=== PATIENT | female | born 1995 | race Hispanic/Latino ===

== ENCOUNTER 2019-09-14 17:06 | Outpatient (CLI) | payer MEDICAID, SELFPAY ==
--- NOTE | ~2019-09-14 | US_ITS ---
EXAMINATION: US OB <= 14 weeks fetus EXAM DATE: 09/14/2019 17:44 INDICATION: Spotting, . First trimester. TECHNIQUE: Pelvic obstetrical transabdominal sonogram was performed by a technologist. There are mu ltiple grayscale and Doppler images available for interpretation. There are no earlier studies of th is gestation for comparison. FINDINGS: Uterus measures 14.1 x 7.8 x 9.3 cm. There is intrauterine gestation sac. pole with heart rate confirmed at 157 beats per minute. The 5.3 cm crown-rump length corresponds to estimated gestational age by ultrasound of 12 weeks 0 days. There is subchorionic heterogeneous partially c ystic and septated region measuring 1.9 x 1.5 x 3.8 cm, could be subchorionic hemorrhage. Left ovary is morphologically normal, right not identified. IMPRESSION: Live intrauterine gestation with small septated subchorionic region likely subchorionic h emorrhage. Reviewed, dictated and finalized at location A. IMPRESSION: Live intrauterine gestation with small septated subchorionic region likely subchorionic hemorrhage.
== END 2019-09-14 17:07 | disposition home or self-care (01) ==
PROVIDERS: Visit Provider Obstetrics & Gynecology
DX: O26.851 Spotting complicating pregnancy, first trimester (principal)
CPT/HCPCS: 76801

== ENCOUNTER 2019-09-15 15:15 | Outpatient (RCR) | payer MEDICAID, SELFPAY | END 2019-12-14 23:59 | disposition home or self-care (01) | LOC: ANHLAB 15:15 | PROVIDERS: Visit Provider Obstetrics & Gynecology | DX: O26.851 Spotting complicating pregnancy, first trimester (principal); Z3A.00 Weeks of gestation of pregnancy not specified | CPT/HCPCS: 36415; 85461 ==

== ENCOUNTER 2019-10-08 12:23 | Outpatient (CLI) | payer MEDICAID, SELFPAY ==
--- NOTE | ~2019-10-08 | US_ITS ---
EXAMINATION: US OB follow up DATE: 10/08/2019 13:04 INDICATION: Subchorionic hematoma TECHNIQUE: Real-time ultrasound of the pelvis was performed. The interpreting radiologist was not pre sent for the study. COMPARISON: None. FINDINGS: There is a single living fetus in breech presentation. The placenta is posterior with persistent 2.4 x 3.0 x 1.3 cm mixed hypoechoic/anechoic subchorionic hematoma along the inferior margin. hear t rate is 157 beats per minute (bpm). The amniotic fluid is subjectively normal. The following biometric data were obtained: BPD: 3.1 cm -> 15 weeks 6 days Head circumference: 11.5 cm -> 15 weeks 4 days Abdominal circumference: 9.8 cm -> 15 weeks 6 days Femur length: 1.7 cm -> 15 weeks 0 days These measurements are concordant. Head circumference to abdominal circumference ratio: 1.17 (normal range 1.06-1.36). Estimated weight: 125 g (+/-) 19 g. or 4 oz. (+/-) 1 oz. IMPRESSION: 1. Single living fetus in breech presentation with heart rate of 157 bpm. 2. Small subchorionic hematoma along the inferior margin of the posterior placenta. 3. Estimated weight is 52nd percentile by Hadlock criteria when 03/29/2020 is used as the estim ated date of delivery (CLINT). Please correlate with clinical information or earlier ultrasounds for mo st accurate CLINT. Reviewed, dictated and finalized at location A. IMPRESSION: 1. Single living fetus in breech presentation with heart rate of 157 bpm. 2. Small subchorionic hematoma along the inferior margin of the posterior place nta. 3. Estimated weight is 52nd percentile by Hadlock criteria when 0 is used as the estimated date of delivery (CLINT). Please correlate with clinic al information or earlier ultrasounds for most accurate CLINT.
== END 2019-10-08 12:24 | disposition home or self-care (01) ==
PROVIDERS: Visit Provider Obstetrics & Gynecology
DX: O36.8911 Maternal care for other specified fetal problems, first trimester, fetus 1 (principal)
CPT/HCPCS: 76816

== ENCOUNTER 2019-12-20 07:49 | Outpatient (CLI) | payer OTHER, SELFPAY ==
--- NOTE | ~2019-12-20 | US_ITS ---
EXAMINATION: US OB /maternal detail DATE: 12/20/2019 08:37 INDICATION: anatomic survey. TECHNIQUE: Real-time ultrasound of the pelvis was performed. COMPARISON: Ultrasound 10/08/2019, 09/14/2019 FINDINGS: There is a single living fetus in breech presentation. The placenta is posterior, 9.5 cm from the ce rvix. heart rate is 145 beats per minute (bpm). The amniotic fluid volume is subjectively kaela l. The following biometric data were obtained: Biparietal diameter (BPD): 6.6 cm; head circumference (HC): 24.7 cm; abdominal circumference (AC): 22 .4 cm; femur length (FL): 4.6 cm. These measurements are concordant. Estimated weight is 914 g +/- 137 g, which correlates with 64th percentile when 03/29/20 is use d as estimated date of delivery. As single measurements, these parameters are each equal to the following estimated gestational ages: BPD: 26 weeks 5 days. HC: 26 weeks 6 days. AC: 26 weeks 5 days. FL: 25 weeks 2 days. estimated gestational age based solely on measurements from this exam is 26 weeks 3 days +/- 1 weeks 6 days. The cerebral ventricles, cerebellum, cisterna magna, nuchal fold, and visualized portions of the spin e are normal. The heart is normal. The diaphragm, stomach, kidneys, and bladder are normal. There are two umbilical arteries to yield a 3-vessel cord. The cord insertion is normal. IMPRESSION: 1. Single living fetus in breech presentation. 2. Estimated weight is 914 g +/- 137 g, which correlates with 64th percentile when 03/29/20 is used as estimated date of delivery. Note that estimated date of delivery from the first ultrasound o n 09/14/2019 was 03/28/2020. 3. Normal anatomic survey. Reviewed, dictated and finalized at location A. IMPRESSION: 1. Single living fetus in breech presentation. 2. Estimated weight is 914 g +/- 137 g, which correlates with 64th perce ntile when 03/29/20 is used as estimated date of delivery. Note that estimated date of delivery from the first ultrasound on 09/14/2019 was 03/28/2020. 3. Normal anatomic survey.
== END 2019-12-20 07:50 | disposition home or self-care (01) ==
PROVIDERS: Visit Provider Obstetrics & Gynecology
DX: Z36.89 Encounter for other specified antenatal screening (principal); Z3A.14 14 weeks gestation of pregnancy
CPT/HCPCS: 76805

== ENCOUNTER 2020-03-22 16:53 | Inpatient (IN) | payer OTHER, SELFPAY ==
[2020-03-22] VITALS (8 sets, daily range): BP systolic 90–129; BP diastolic 52–102; PULSE 78–97; TEMP 36.6–37.1; BMI 33.8
--- NOTE | 2020-03-22 17:25 | LDADM ---
This patient, Melany Bobby, was admitted to Labor/Delivery/Recovery 109 on 03/22/20 at 16:53. Plans for labor, pain management and were discussed with patient. Patient/family oriented to hospital policies and general routines including ID bracelet, bed and alarms, visiting hours, pain management, procedures, bathroom and other care routines, personal items, smoking policy, room service/diet and guest tray routines, infant security routines, and visiting hours. Patient/Family are encouraged to report perceived risks to care and to ask questions if they do not understand what they are told or what they should do. See OBIX for further documentation.
[2020-03-22] MEDS: LACTATED RINGERS 1,000 ML 125 ML IV CONT (17:28)
[2020-03-22] MEDS: AMPICILLIN 2 GM/NS 100 ML 2 GM/100 ML BAG IVPB (17:28)
[2020-03-22 17:31] LABS: Basophils Percent Auto 0.3 % (0.2-1.2); Eosinophils Percent Auto 0.2 % (0-4.4); Hematocrit 39.4 % (37.0-47.0); Hemoglobin 12.3 g/dL (12.0-15.0); Immature Granulocyte Absolute 0.07 K/mm3 (0.00-0.031); Immature Granulocyte Percent A 0.8 % (0-0.5); Lymphocytes Absolute Auto 1.58 K/mm3 (0.9-3.2); Lymphocytes Percent Auto 17.5 % (18.3-44.2); Mean Corpuscular HGB Conc 31.2 g/dl (32-36); Mean Corpuscular Hemoglobin 27.2 pg (26-34); Mean Corpuscular Volume 87.2 fl (80-100); Mean Platelet Volume 11.1 fl (7.4-10.4); Monocytes Absolute Auto 0.7 K/mm3 (0.1-0.6); Monocytes Percent Auto 7.7 % (2.6-8.5); Neutrophils Absolute Auto 6.6 K/mm3 (1.3-6.7); Neutrophils Percent Auto 73.5 % (45.5-73.1); Platelet Count Result 332 k/mm3 (150-375); Red Blood Count 4.52 M/mm3 (4.2-5.4); Red Cell Distribution Width 16.1 % (11.5-14.5)
[2020-03-22] MEDS: DINOPROSTONE 10 MG VAG INSERT VAGINAL (18:02)
[2020-03-22] MEDS: AMPICILLIN 1 GM/NS 50 ML 1 GM/50 ML BAG IVPB (22:07)
--- NOTE | 2020-03-22 22:19 | P.PNAN_ITS ---
Anes - Eval Pre Procedure Procedure: Labor epidural Date/Time: 03/22/20 22:19 Surgeon: Tavo Preop Diagnosis: pain during labor Pre Op Diagnosis: Induction of Labor Patient Data Age: 24 Gender: F Height: 1.57 m Weight: 84 kg Last Vital Signs Temp 36.6 C 03/22/20 17:30 Pulse 92 03/22/20 20:00 BP 116/102 H 03/22/20 20:00 Allergies Allergy/AdvReac Type Severity Reaction Status Date / Time No Known Allergies Allergy Verified 02/29/20 13:50 Home Medications Medication Instructions Recorded Confirmed Type ergocalciferol (vitamin D2) 1,250 mcg PO WEEKLY 02/29/20 03/22/20 History [Vitamin D2] famotidine 20 mg PO BID 02/29/20 03/22/20 History melatonin 5 mg PO HS PRN 02/29/20 03/22/20 History prenat.vits,david,qsc-[id number] 1 tablet PO DAILY 02/29/20 03/22/20 History [ #2] Laboratory Tests 03/22/20 03/22/20 03/22/20 17:15 17:15 17:15 WBC 9.0 K/mm3 K/mm3 (4.5-10.0) RBC 4.52 M/mm3 M/mm3 (4.2-5.4) Hgb 12.3 g/dL g/dL (12.0-15.0) Hct 39.4 % % (37.0-47.0) MCV 87.2 fl fl (80-100) MCH 27.2 pg pg (26-34) MCHC 31.2 g/dl L g/dl (32-36) RDW 16.1 % H % (11.5-14.5) Plt Count 332 k/mm3 k/mm3 (150-375) MPV 11.1 fl H fl (7.4-10.4) Immature Gran % (Auto) 0.8 % H % (0-0.5) Neut % (Auto) 73.5 % H % (45.5-73.1) Lymph % (Auto) 17.5 % L % (18.3-44.2) [place] % (Auto) 7.7 % % (2.6-8.5) Eos % (Auto) 0.2 % % (0-4.4) Baso % (Auto) 0.3 % % (0.2-1.2) Lymph # (Auto) 1.58 K/mm3 K/mm3 (0.9-3.2) [place] # (Auto) 0.7 K/mm3 H K/mm3 (0.1-0.6) Eos # (Auto) 0.0 K/mm3 K/mm3 (0-0.3) Baso # (Auto) 0.0 K/mm3 K/mm3 (0.0-0.1) Abs Immat Gran (auto) 0.07 K/mm3 H K/mm3 (0.00-0.031) Absolute Neuts (auto) 6.6 K/mm3 K/mm3 (1.3-6.7) Absolute Nucleated RBC 0.0 K/mm3 K/mm3 (0.0-0.012) Nucleated RBC % 0.0 % % (0.0-0.2) RPR Pending Blood Type O Positive Antibody Screen Negative Patient hx anesthesia problems: none Family hx anesthesia problems: none [facility], [facility] Family History Family History (Updated 02/29/20 @ 13:55 by Tiffany Jensen RN) Father Diabetes mellitus Social History Social History Smoking status: Never smoker Second hand tobacco smoke exposure: No Substance use: never Spiritual care concerns: No Exam Day of Procedure 03/22/20 22:19
[2020-03-22] MEDS: fentaNYL CITRATE INJ (*CRX) 100 MCG/2 ML VIAL 50 MCG IV PUSH (23:49)
[2020-03-23] VITALS (122 sets, daily range): BP systolic 94–130; BP diastolic 52–104; PULSE 65–109; RESP 18–20; TEMP 36.6–36.8; O2SAT 97–100
[2020-03-23] MEDS: AMPICILLIN 1 GM/NS 50 ML 1 GM/50 ML BAG IVPB ×4 (02:30→13:51)
[2020-03-23] MEDS: fentaNYL CITRATE INJ (*CRX) 100 MCG/2 ML VIAL 50 MCG IV PUSH (02:49)
[2020-03-23 06:03] LABS: Rapid Plasma Reagin Non-Reactive (NonReactive)
[2020-03-23] MEDS: OXYTOCIN 30 UNITS/NS 500 ML 30 UNITS/500 ML BAG 6 UNITS IV CONT (07:10)
[2020-03-23] MEDS: LACTATED RINGERS 1,000 ML 125 ML IV CONT (09:15)
--- NOTE | 2020-03-23 09:15 | WPDOBADMIT ---
Obstetrics - Admit Note Admission Note: AROM clear fluid /-2 vertexPrenatal record reviewed. No pertinent additions to the history and/or any subsequent changes in the physical findings that are not consistent with the expected course of the were found. Additions to the history and/or subsequent changes in the physical findings follow. None.
--- NOTE | 2020-03-23 14:29 | P.PCNOB_ITS ---
OB - Delivery Note Procedure Delivery date: 03/23/20 Procedure: events: Labor Induction Intrapartal events: None Induction method: AROM, per pitocin protocol and per cervidil protocol Delivery monitor: external FHT, external uterine and internal uterine Route of delivery: Laceration Description: None Specimen: No Estimated blood loss (mL): 300 Anesthesia type: Epidural Disposition: floor [place] Baby Date of : 03/23/20 Time of : 14:13 Weeks of gestation at delivery: 39 Infant gender: Female Weight (pounds): 7 Weight (ounces): 8 position: Left Occiput Anterior Placenta delivery description: Spontaneous cord vessel description: 3 Vessels score one minute: 9 score five minutes: 9
[2020-03-23] MEDS: OXYTOCIN 30 UNITS/NS 500 ML 30 UNITS/500 ML BAG 125 UNITS IV CONT (14:50)
[2020-03-23] MEDS: WITCH HAZEL 40 PADS 1 PAD TOPICAL (16:24)
[2020-03-23] MEDS: IBUPROFEN 600 MG TABLET PO (16:24)
[2020-03-23] MEDS: BENZOCAINE 20% AER SPR (*SP) 56 GM CAN 1 SPRAY TOPICAL (16:24)
--- NOTE | 2020-03-23 17:25 | OBPPTRN ---
Patient transferred to post room # 291 via wheelchair. Support person present. Oriented to unit, room, information board, rooming in, admission packet and security measures. Patient verbalizes understanding.
[2020-03-24 05:30] LABS: Hematocrit 31.2 % (37.0-47.0); Hemoglobin 9.8 g/dL (12.0-15.0)
[2020-03-24 08:30] VITALS: BP 119/69; PULSE 87; RESP 16; TEMP 37.1; O2SAT 100
--- NOTE | 2020-03-24 08:30 | WPDANLDPN2 ---
Anes-Prog Note L&D Date/Time: 03/24/20 08:30 Comfortable throughout: labor and delivery Neuraxial method: epidural Epidural/Spinal procedure site: clean & non-tender Neuro status: Neuro function grossly intact. Cardiovascular status: normal Respiratory status: normal Airway patency: baseline Mental status: baseline Post-Op hydration status: normal Vital Signs: Last Vital Signs Temp 36.8 C 03/23/20 20:00 Pulse 81 03/23/20 20:00 Resp 18 03/23/20 20:00 BP 103/62 03/23/20 20:00 Pulse Ox 99 03/23/20 20:00 Pain score (VAS): 1 I/O: Intake & Output 03/23/20 03/24/20 03/24/20 23:59 07:59 15:59 Intake Total 1500 Balance 1500 Post-procedural complaints: none Patient feedback: Patient satisfied with anesthetic care.
[2020-03-24] MEDS: POLYSACCHARIDE IRON COMPLEX 150 MG CAPSULE PO (09:13)
[2020-03-24] MEDS: MULTIVIT/MIN/PREN/FOL AC/IRON TABLET 1 TAB PO (09:13)
[2020-03-24] MEDS: IBUPROFEN 600 MG TABLET PO (09:14)
[2020-03-24] MEDS: DOCUSATE SODIUM 100 MG CAPSULE (09:14)
--- NOTE | 2020-03-24 10:40 | PC.NURSE ---
Consulted with patient,mother reports she is able to latch infant independently with slight tenderness. Right nipple has a small blister. Reviewed infant feeding cues, frequencies, duration of feedings, feeding elimination flow sheet, and signs of adequate intake. Demonstrated stimulation techniques to wake infant for feeding. Assisted with to breast. Reviewed positioning/alignment in cross cradle, holding breast in U hold and guided asymmetrical latch on. Several attempts before was able to latch correctly. Mother reports she feels this latch is deeper than previous and has less tenderness. Infant nursed eagerly with steady draws and frequent swallowing noted, followed with pausing. Reviewed signs of a correct latch, effective nursing and suck swallow ratio. Infant was able to maintain latch without discomfort to mother. Nipple care reviewed. Suggested mother stimulate infant while feeding to keep nursing effectively for increased intake and to assist with maintaining deep latch. Demonstrated how to adjust latch more deeply while feeding. Mother is wishing to discharge today. Mother is feeding as required and waking to feed if needed. is currently meeting outcomes for weight, output, jaundice and feeding frequencies. Mother states she feels confident to continue effective at home. Reviewed transition to breast milk, signs of adequate intake, and engorgement/relief. Instructed to call ICP if intake/output less than required. Reviewed regular medications mother is taking. Information provided per Meliza. Reviewed community resources on the [facility] website and in the Mom/Baby guide. Information on outpatient services provided. Mother has no further questions at this time.
[2020-03-26 10:59] VITALS: BP 117/71; PULSE 82; RESP 16; TEMP 36.9; O2SAT 99
--- NOTE | 2020-03-26 12:35 | PC.NURSE ---
03-26-2020 at 1045: Offered to contact OB about burning with urination. Patient states she believes it is irritated from catheter and delivery. States she has no signs of UTI. States she will call if no improvement.
--- NOTE | 2020-04-14 12:06 | P.DS_ITS ---
DS: Admitting Diagnosis Admitting Diagnosis Admitting Diagnosis: Induction of Labor OB - DS: Summary OB Procedures : None OB Procedures Intrapartum: Spontaneous Vag Delivery OB Procedures: : None Time Spent with Patient Time attestation: Total time spent providing and/or coordinating discharge services: Discharge Plan Discharge Attending physician on discharge: Claus Thorne Discharging Clinician: Claus Thorne Patient Disposition: Home, Self-Care Activity: may shower, follow weight bearing status and pelvic rest Diet: regular Discharge Instructions: Education: Mom and Baby Guide Given to: Mother Follow-Up: Call your delivering provider's office for an appointment to be seen. Mom and baby should come to the [facility] for the follow-up appointment. Appointment Date/Time: March 26, 2020 at 10:00 am What to expect at your follow-up visit: Physical Assessment Call [phone] if you are unable to keep your appointment time. BREAST CARE: * Wear a snug supportive bra. * For engorgement discomfort: Breast Feeding: * Apply warm moist washcloths * Express milk as needed to relieve engorgement * Wear loose clothing * For sore nipples: * Identify correct latch-on * Apply warm moist washcloths before and after nursing * Air dry nipples after nursing * May apply Lansinoh cream to nipples EPISIOTOMY/PERINEAL CARE: * Until bleeding stops, use your hafsa bottle after urinating * Change your pad frequently throughout the day * No tub baths until seen by your physician - You may shower ACTIVITY: * Rest as much as possible. * Do not exercise or lift anything heavier than your baby (such as laundry or other children.) * Avoid stairs or driving as much as possible. * Do not put anything into the vagina. No douching, tampons, or sexual activity until seen by physician. NOTIFY PHYSICIAN IF YOU HAVE ANY QUESTIONS OR IF ANY OF THE FOLLOWING SYMPTOMS OCCUR: * If your vaginal bleeding becomes foul smelling. * If your vaginal bleeding becomes more heavy than a period or if your bleeding changes from pink to bright red. However, you may pass an occasional walnut- sized clot once or twice for the first week . * If you experience a sharp, shooting pain in you calves. * If you discover a hard, reddened area on your breast or if you experience flu- like symptoms. DIET: * Eat regular, well-balanced meals. * Drink plenty of fluids daily. If , drink to thirst. Patient Instructions: Antibiotic Form Stand Alone Forms: General Discharge Information Follow-up/Referrals: Claus Thorne MD [Physician] - Discharge Medications: New norethindrone (contraceptive) 0.35 mg tablet 0.35 mg PO DAILY Qty: 28 RF: 2 Continued prenat.vits,david,[id number] Tablet 1 tablet PO DAILY RF: 0 famotidine 20 mg Tablet 20 mg PO BID RF: 0 ergocalciferol (vitamin D2) [Vitamin D2] 1,250 mcg (50,000 unit) Capsule 1,250 mcg PO WEEKLY RF: 0 melatonin 5 mg Tablet 5 mg PO HS PRN (Reason: Sedation) RF: 0 Date of admission: 03/22/20 16:53 Primary Care Provider: PHYSICIAN,SELF SEALING [employer]DER Admitting Provider: Claus Thorne Attending physician on admission: Claus Thorne
== END 2020-03-24 16:48 | disposition home or self-care (01) | DRG 560 ==
LOC: ANHLDR 17:00 → ANHOB2 03-23 17:33
PROVIDERS: Admitting Provider Obstetrics & Gynecology; Visit Provider Obstetrics & Gynecology
DX: O99.824 Streptococcus B carrier state complicating childbirth (principal); Z3A.39 39 weeks gestation of pregnancy; Z37.0 Single live birth
CPT/HCPCS: 36415; 85014; 85018; 85025; 86592; 86850; 86900; 86901; A9270; J0290; J2590; J2795; J3010; J7120

== ENCOUNTER 2020-03-29 16:32 | Outpatient (RCR) | payer OTHER, SELFPAY ==
--- NOTE | 2020-03-30 14:42 | PC.NURSE ---
IN 1100 OUT 1145 HISTORY: Pt. delivered at [facility] at 39 weeks. had no complications after delivery. Mother had no complications after delivery. Infant is now 5 days/weeks old. appears to be well cared for. Infant has been seen by ICP as scheduled. Infant will see ICP on 03/29/2020. Mother reports: She had pain with latch and and began pumping and bottle feeding for the last 3 days. Mother has attempted a few times with pain, she then bottle fed. Mother wishes: To return to breast now her milk is in and nipples have healed. Currently at 6-8 wets per day and 4-5 yellow seedy stools per day. weight: 7#6 Discharge weight: 7#3 Last Weight: 6#11 at follow up Pre feeding weight: 4040 Post feeding weight: 4062 OBSERVATION: Mother puts infant to breast in cradle positioning, allow infant to latch shallow to breast. Mother reports pain and is on and off with feeding. Reviewed positioning/alignment in cross cradle, holding breast in U hold and guided asymmetrical latch on. Infant was able to latch correctly with first attempt. nursed eagerly, with steady draws and frequent swallowing noted, within a few minutes infant began to have long pausing. Reviewed signs of a correct latch, effective nursing and suck swallow ratio. Infant was able to maintain latch without discomfort to mother. Suggested mother stimulate infant while feeding to keep in an effective feeding pattern for increased intake and to assist with maintaining deep latch. Demonstrated how to adjust latch more deeply while feeding. Mother was able to independently switch to other breast obtaining deep latch. PLAN: Mother will follow above feeding plan using techniques for deeper latch. Discussed supplementation is not needed if she continues with deep latch and is able to maintain. Stressed to feed on demand or by three hours. Mother will call with further questions or concerns.
== END 2020-04-15 09:07 | disposition home or self-care (01) ==
LOC: ANHOBOP 16:32
PROVIDERS: Visit Provider Pediatrics
DX: O92.13 Cracked nipple associated with lactation (principal)
CPT/HCPCS: 99212; G0463

== ENCOUNTER 2021-11-13 08:23 | Outpatient (CLI) | payer OTHER, SELFPAY ==
--- NOTE | ~2021-11-13 | US_ITS ---
EXAMINATION: US pelvic complete w TV DATE: 11/13/2021 09:12 INDICATION: Pelvic pain TECHNIQUE: Multiple transabdominal and endovaginal sonographic images of the pelvis were obtained. COMPARISON: None. FINDINGS: The uterus measures 8.1 x 4.7 x 3.1 cm. The endometrial complex measures 6 mm in thickness. The righ t ovary measures 2.4 x 2.2 x 2.6 cm. The left ovary measures 2.2 x 1.8 x 1.9 cm. There are a few subc entimeter anechoic follicles in both ovaries. Vascular flow identified in both ovaries on color Doppl er. There is no free fluid in the pelvis. IMPRESSION: 1. Normal pelvic ultrasound. Reviewed, dictated and finalized at location B.
== END 2021-11-13 08:24 | disposition home or self-care (01) ==
PROVIDERS: Visit Provider Nurse Practitioner
DX: R10.2 Pelvic and perineal pain (principal)
CPT/HCPCS: 76830; 76856

== ENCOUNTER 2022-11-16 16:19 | Outpatient (CLI) | payer OTHER, SELFPAY ==
--- NOTE | ~2022-11-16 | US_ITS ---
EXAMINATION: US OB <= 14 weeks fetus DATE: 11/16/2022 17:04 INDICATION: Uncertain dates. TECHNIQUE: Real-time transabdominal pelvic ultrasound was performed. COMPARISON: None. FINDINGS: The uterus measures 10.9 x 7.2 cm. There is an intrauterine gestational sac. A yolk sac is identified . The crown rump length measures 5.5 cm, which correlates with an estimated gestational age of 12 weeks and 1 day(s) (+/-) 1 week(s) and 1 day(s). heart motion is identified measuring 161 b eats per minute (bpm) by M-mode Doppler. The right ovary is not visualized. The left ovary measures 2 .8 x 2.0 x 3.0 cm. There is no free fluid in the pelvis. IMPRESSION: 1. Single living intrauterine gestation with estimated date of delivery of 05/30/2023. Reviewed, dictated and finalized at location E. IMPRESSION: 1. Single living intrauterine gestation with estimated date of delivery of 05/07.
== END 2022-11-16 16:20 | disposition home or self-care (01) ==
LOC: ANHIMG 16:22
PROVIDERS: Visit Provider Obstetrics & Gynecology Gynecology
DX: Z36.87 Encounter for antenatal screening for uncertain dates (principal); Z3A.00 Weeks of gestation of pregnancy not specified
CPT/HCPCS: 76801

== ENCOUNTER → 2022-12-29 10:31 | Outpatient (CLI) | payer OTHER, SELFPAY ==
--- NOTE | ~2022-12-29 | US_ITS ---
US OB /maternal detail DATE: 12/29/2022 11:16 INDICATION: anatomy screen TECHNIQUE: Real-time imaging and Doppler analysis COMPARISON: 11/16/2022 obstetrical ultrasound examination FINDINGS: Live prado intrauterine gestation, fetus in longitudinal lie, breech presentation with heart rate 151 bpm. Anterior placenta, lower margin 5.2 cm above the cervix. Cervical length: 3.9 cm Subjectively normal amount of amniotic fluid. No evidence of cerebral ventriculomegaly. The cerebellum appears normal. Normal cisterna magna, normal nuchal fold. Normal upper lip. spine appears normal on transverse and longitudin al imaging. Normal diaphragm. Fluid is demonstrated in the stomach and urinary bladder. The kidneys a re normal without hydronephrosis. 4 extremities are demonstrated. Normal umbilical insertion at abdominal wall. Biparietal diameter 4.0 cm; 18 weeks 1 day Head circumference 14.85 cm; 18 weeks 0 days Abdominal circumference 12.73 cm; 18 weeks 2 days Femur length 2.77 cm; 18 weeks 3 days Composite age by Hadlock formula is 18 weeks 2 days +/- 1 week 2 days, consistent with CLINT of 05/30/19 24, same as determined by LMP. Estimated weight is 235.4% -35.3 g. Head circumference/abdominal circumference 1.17, within normal range of 1.08-1.27. IMPRESSION: Normal anatomy screen. Estimated gestational age is 18 weeks 2 days +/- 1 week 2 days. CLINT of 05/30/2023 Breech presentation Reviewed, dictated and finalized at Location A. Reviewed, dictated and finalized at location A. IMPRESSION: Normal anatomy screen. Estimated gestational age is 18 weeks 2 days +/- 1 week 2 days. CLINT of Breech presentation
== END ==
PROVIDERS: PCP Advanced Practice Midwife; Visit Provider Advanced Practice Midwife
DX: O32.1XX0 Maternal care for breech presentation, not applicable or unspecified (principal); Z3A.18 18 weeks gestation of pregnancy
CPT/HCPCS: 76805

== ENCOUNTER 2023-03-04 07:03 | Outpatient (CLI) | payer OTHER, SELFPAY ==
[2023-03-04 08:44] LABS: Basophils Percent Auto 0.5 % (0.2-1.2); Eosinophils Absolute Auto 0.1 K/mm3 (0-0.3); Eosinophils Percent Auto 1.2 % (0-4.4); Hematocrit 38.3 % (37.0-47.0); Hemoglobin 11.9 g/dL (12.0-15.0); Immature Granulocyte Absolute 0.14 K/mm3 (0.00-0.031); Immature Granulocyte Percent A 1.9 % (0-0.5); Lymphocytes Absolute Auto 1.35 K/mm3 (0.9-3.2); Lymphocytes Percent Auto 18.1 % (18.3-44.2); Mean Corpuscular HGB Conc 31.1 g/dl (32-36); Mean Corpuscular Hemoglobin 30.5 pg (26-34); Mean Corpuscular Volume 98.2 fl (80-100); Mean Platelet Volume 10.5 fl (7.4-10.4); Monocytes Absolute Auto 0.6 K/mm3 (0.1-0.6); Monocytes Percent Auto 8.2 % (2.6-8.5); Neutrophils Absolute Auto 5.2 K/mm3 (1.3-6.7); Neutrophils Percent Auto 70.1 % (45.5-73.1); Platelet Count Result 254 k/mm3 (150-375); Red Cell Distribution Width 13.7 % (11.5-14.5); White Blood Count 7.5 K/mm3 (4.5-10.0)
[2023-03-04 09:12] LABS: Glucose 1 Hour 114 mg/dL
[2023-03-04 09:52] LABS: HIV 1/2 Ab P24 Ag Result Negative (Negative)
== END 2023-03-04 07:04 | disposition home or self-care (01) ==
PROVIDERS: Visit Provider Obstetrics & Gynecology
DX: Z34.90 Encounter for supervision of normal pregnancy, unspecified, unspecified trimester (principal); Z3A.00 Weeks of gestation of pregnancy not specified
CPT/HCPCS: 36415; 85025; 86703; G0432

== ENCOUNTER 2023-03-06 16:34 | Outpatient (CLI) | payer OTHER, SELFPAY | END 2023-03-06 16:35 | disposition home or self-care (01) | LOC: ANHLAB 16:35 | PROVIDERS: PCP Advanced Practice Midwife; Visit Provider Obstetrics & Gynecology | DX: Z34.90 Encounter for supervision of normal pregnancy, unspecified, unspecified trimester (principal) | CPT/HCPCS: 36415; 86644; 86747; 86787 ==

== ENCOUNTER 2023-05-01 16:19 | Observation (INO) | payer OTHER, SELFPAY ==
[2023-05-01] VITALS (23 sets, daily range): BP systolic 106–113; BP diastolic 62–70; PULSE 68–128; TEMP 36.3; O2SAT 94–100; BMI 34.2
--- NOTE | 2023-05-01 17:08 | OBADM ---
This patient, Eveline Kaiser, admitted to the OB room 116 for observation. Patient/family oriented to hospital policies and general routines including ID bracelet, bed and alarms, visiting hours, pain management, procedures, bathroom and other care routines, personal items, smoking policy, room service/diet, and visiting hours. Patient/Family are encouraged to report perceived risks to care and to ask questions if they do not understand what they are told or what they should do.
[2023-05-01 17:18] LABS: Appearance Urine Clear (Clear); Bilirubin Urine Negative (Negative); Blood Urine Negative (Negative); Color Urine Yellow (Yellow); Glucose Urine UA Negative (Negative); Ketones Urine Trace mg/dL (Negative); Leukocyte Esterase Ur Negative LEU/UL (Negative); Nitrate Urine Negative (Negative); Protein Urine Negative (Negative); Specific Grav Ur 1.025 (1.001-1.035)
[2023-05-01 17:21] LABS: Add Urine Microscopic? NO
[2023-05-01] MEDS: ACETAMINOPHEN 500 MG TABLET 1000 MG PO (18:07)
[2023-05-01] MEDS: LACTATED RINGERS 1,000 ML 999 ML IV CONT (18:44)
[2023-05-01] MEDS: TERBUTALINE SULFATE 1 MG/ML VIAL 0.25 MG SUB-Q (19:57)
[2023-05-01] MEDS: BETAMETHASONE SOD PHOS/ACETATE 30 MG/5 ML VIAL 12 MG IM (21:25)
[2023-05-01] MEDS: CALCIUM CARBONATE (TUMS) 500 MG (200 MG ELEMENTAL) PO (23:35)
[2023-05-02] VITALS: TEMP 36.6
--- NOTE | 2023-05-02 07:41 | PM.OBTRLD ---
OB - Triage/Final Diagnosis Visit Information Date of evaluation: 05/02/23 Reason for evaluation: threatened labor Comments/Additional reasons for admission: I have assessed the risk for this patient, Eveline Kaiser, and determined that she would benefit from observation care. Evaluation Laboratory results: Laboratory Tests 05/01/23 17:04 Urine Color Yellow Urine Appearance Clear Urine pH 7.0 Ur Specific [place] 1.025 Urine Protein Negative Urine Glucose (UA) Negative Urine Ketones Trace H Ur Blood (Man) Negative Urine Nitrate Negative Urine Bilirubin Negative Urine Urobilinogen 1.0 Leukocyte Esterase Rfl Negative Vital signs: Vital Signs - 24 hr 05/01/23 17:00 05/01/23 16:00 05/01/23 17:30 Temperature 97.4 F L Pulse Rate 68 74 Blood Pressure 113/63 109/70 Pulse Oximetry Oxygen Delivery 05/01/23 19:00 05/01/23 19:57 05/01/23 20:02 Temperature Pulse Rate 74 Blood Pressure 106/62 Pulse Oximetry 99 100 Oxygen Delivery 05/01/23 20:07 05/01/23 20:12 05/01/23 20:17 Temperature Pulse Rate Blood Pressure Pulse Oximetry 96 96 96 Oxygen Delivery 05/01/23 20:22 05/01/23 20:27 05/01/23 20:32 Temperature Pulse Rate Blood Pressure Pulse Oximetry 97 94 98 Oxygen Delivery 05/01/23 20:37 05/01/23 20:42 05/01/23 20:47 Temperature Pulse Rate Blood Pressure Pulse Oximetry 98 99 100 Oxygen Delivery 05/01/23 20:52 05/01/23 20:57 05/01/23 21:02 Temperature Pulse Rate Blood Pressure Pulse Oximetry 99 99 100 Oxygen Delivery 05/01/23 21:07 05/01/23 21:12 05/01/23 21:17 Temperature Pulse Rate Blood Pressure Pulse Oximetry 100 100 100 Oxygen Delivery 05/01/23 21:22 05/01/23 21:27 05/02/23 00:00 Temperature 98 F Pulse Rate Blood Pressure Pulse Oximetry 99 98 Oxygen Delivery 05/01/23 17:06 05/01/23 18:41 Temperature Pulse Rate Blood Pressure Pulse Oximetry Oxygen Delivery Room Air Room Air
[2023-05-02 08:15] VITALS: BP 108/61; PULSE 84; TEMP 36.8
[2023-05-02] MEDS: BETAMETHASONE SOD PHOS/ACETATE 30 MG/5 ML VIAL 12 MG IM (09:35)
--- NOTE | 2023-05-02 09:42 | PC.NURSE ---
Iv discontinued; Tip intact. site WNL.
== END 2023-05-02 09:49 | disposition home or self-care (01) ==
PROVIDERS: Admitting Provider Student in an Organized Health Care Education/Training Program; PCP Advanced Practice Midwife; Visit Provider Student in an Organized Health Care Education/Training Program
DX: O47.03 False labor before 37 completed weeks of gestation, third trimester (principal); Z3A.35 35 weeks gestation of pregnancy
CPT/HCPCS: 81003; 96372; A9270; G0378; G0379; J0702; J3105; J7120

== ENCOUNTER 2023-05-22 11:57 | Observation (INO) | payer OTHER, SELFPAY ==
--- NOTE | 2023-05-23 09:29 | PM.OBTRLD ---
OB - Triage/Final Diagnosis Visit Information Date of evaluation: 05/22/23 Reason for evaluation: threatened labor Comments/Additional reasons for admission: I have assessed the risk for this patient, Eveline Kaiser, and determined that she would benefit from observation care.
== END 2023-05-22 13:53 | disposition home or self-care (01) ==
PROVIDERS: Admitting Provider Student in an Organized Health Care Education/Training Program; Visit Provider Student in an Organized Health Care Education/Training Program
DX: O47.1 False labor at or after 37 completed weeks of gestation (principal); Z3A.38 38 weeks gestation of pregnancy
CPT/HCPCS: G0378; G0379

== ENCOUNTER 2023-05-26 03:44 | Inpatient (IN) | payer OTHER, SELFPAY ==
[2023-05-26] VITALS (161 sets, daily range): BP systolic 82–146; BP diastolic 47–108; PULSE 64–143; RESP 16–18; TEMP 36.1–37.1; O2SAT 87–100; BMI 35.2
--- NOTE | 2023-05-26 03:44 | LDADM ---
This patient, Eveline Kaiser, was admitted to Labor/Delivery/Recovery 106 on 05/26/23 at 03:44. Plans for labor, pain management and were discussed with patient. Patient/family oriented to hospital policies and general routines including ID bracelet, bed and alarms, visiting hours, pain management, procedures, bathroom and other care routines, personal items, smoking policy, room service/diet and guest tray routines, security routines, and visiting hours. Patient/Family are encouraged to report perceived risks to care and to ask questions if they do not understand what they are told or what they should do. See OBIX for further documentation.
[2023-05-26] MEDS: LACTATED RINGERS 1,000 ML 125 ML IV CONT ×2 (04:19→07:33)
[2023-05-26] MEDS: AMPICILLIN 2 GM/NS 100 ML 2 GM/100 ML BAG IVPB (04:26)
[2023-05-26 04:38] LABS: Basophils Percent Auto 0.4 % (0.2-1.2); Eosinophils Absolute Auto 0.1 K/mm3 (0-0.3); Eosinophils Percent Auto 1.1 % (0-4.4); Hematocrit 41.4 % (37.0-47.0); Hemoglobin 13.1 g/dL (12.0-15.0); Immature Granulocyte Absolute 0.08 K/mm3 (0.00-0.031); Lymphocytes Absolute Auto 1.81 K/mm3 (0.9-3.2); Lymphocytes Percent Auto 22.5 % (18.3-44.2); Mean Corpuscular HGB Conc 31.6 g/dl (32-36); Mean Corpuscular Hemoglobin 30.2 pg (26-34); Mean Corpuscular Volume 95.4 fl (80-100); Mean Platelet Volume 11.2 fl (7.4-10.4); Monocytes Absolute Auto 0.7 K/mm3 (0.1-0.6); Monocytes Percent Auto 8.8 % (2.6-8.5); Neutrophils Absolute Auto 5.3 K/mm3 (1.3-6.7); Neutrophils Percent Auto 66.2 % (45.5-73.1); Platelet Count Result 227 k/mm3 (150-375); Red Blood Count 4.34 M/mm3 (4.2-5.4); Red Cell Distribution Width 14.7 % (11.5-14.5); White Blood Count 8.1 K/mm3 (4.5-10.0)
[2023-05-26] MEDS: AMPICILLIN 1 GM/NS 50 ML 1 GM/50 ML BAG IVPB ×2 (09:06→13:12)
[2023-05-26] MEDS: OXYTOCIN 30 UNITS/NS 500 ML 30 UNITS/500 ML BAG IV CONT (09:07)
--- NOTE | 2023-05-26 09:32 | PM.IMHP ---
H&P: HPI History of Present Illness Date/Time: 05/26/23 09:32 Chief Complaint: Leaking of fluid Narrative: She is 39 weeks presented with SROM 0300 clear fluid. Cervix 3 cm. PNC signficant for marginal cord insertion, growth has been normal. GBS positive. Review of Systems Review of Systems: All systems reviewed & are unremarkable except as noted in HPI and below Constitutional: Constitutional: Reports no additional constitutional complaints and Denies headache(s) Eyes: Eyes: Denies spots in vision ENT: Reports system reviewed and no additional complaints, except as documented and Denies headache(s) Cardiovascular: Cardiovascular: Denies chest pain and Denies dyspnea Respiratory: Respiratory: Denies dyspnea Gastrointestinal: Gastrointestinal: Reports no additional gastrointestinal complaints Genitourinary: Genitourinary: Reports amenorrhea Musculoskeletal: Musculoskeletal: Reports no additional musculoskeletal complaints Integumentary/Breasts: Skin/Breast: Denies breast mass and Denies rash Neurologic: Denies headache(s) Psychiatric: Psychiatric: Reports no additional psychiatric complaints PMFSH Past Medical History Medical History Obesity (BMI 30-39.9) Pain during labor Post depression (spontaneous vaginal delivery) 2020 Family History Family History Father Diabetes mellitus Social History Social History Smoking status: Never smoker Second hand tobacco smoke exposure: No Substance use: never Do You Feel Safe in your Home?: Yes Lack of Transportation: No Lack of Food: Never True Current Housing: I Have Housing Concerned About Future Housing: No Difficulty Paying Gas/Electric Bills: No Difficulty Paying for Meds: No Currently Unemployed: No Education: High School Diploma/GED Difficulty w/ Childcare or Family Care: No Living arrangements: with family Occupation/Education: occupation Gender identity (if verbalized by the patient): Female Sexual Orientation (if Verbalized by the Patient): Straight or Heterosexual Spiritual care concerns: No Meds Home Medications and Allergies Home Medications Medication Instructions Recorded Confirmed Type ergocalciferol (vitamin D2) 1,250 1,250 mcg PO WEEKLY 02/29/20 05/21/23 History mcg (50,000 unit) capsule (Vitamin D2) prenat.vits,david,xsb-sghf-akokd 1 tablet PO DAILY 02/29/20 05/21/23 History omeprazole 20 mg capsule,delayed 20 mg PO DAILY #90 caps 03/21/23 05/21/23 Rx release aspirin 81 mg tablet 81 mg PO DAILY 05/01/23 05/21/23 History sertraline 25 mg tablet (Zoloft) 25 mg PO DAILY #30 tabs 05/14/23 05/21/23 Rx Allergies Allergy/AdvReac Type Severity Reaction Status Date / Time No Known Allergies Allergy Verified 05/21/23 15:48 Vital Signs Vital Signs - 24 hr 05/26/23 04:15 05/26/23 05:00 05/26/23 05:36 Temperature 98.7 F Pulse Rate 105 H 98 Respiratory Rate 16 Blood Pressure 122/85 122/73 Pulse Oximetry Oxygen Delivery 05/26/23 06:01 05/26/23 06:32 05/26/23 07:01 Temperature Pulse Rate 97 89 73 Respiratory Rate Blood Pressure 100/73 98/70 L 105/66 Pulse Oximetry Oxygen Delivery 05/26/23 07:31 05/26/23 07:52 05/26/23 07:53 Temperature Pulse Rate 80 83 Respiratory Rate Blood Pressure 117/68 122/74 Pulse Oximetry 98 Oxygen Delivery 05/26/23 07:56 05/26/23 07:57 05/26/23 07:58 Temperature Pulse Rate 78 90 Respiratory Rate Blood Pressure 126/75 127/75 Pulse Oximetry 100 Oxygen Delivery 05/26/23 08:01 05/26/23 08:02 05/26/23 08:04 Temperature Pulse Rate 80 95 Respiratory Rate Blood Pressure 115/62 111/65 Pulse Oximetry 99 Oxygen Delivery 05/26/23 08:07 05/26/23 08:10 05/26/23 08:12 Temperature
--- NOTE | 2023-05-26 09:39 | P.PNOB_ITS ---
OB - PN: Subj Subjective Date/time seen: 05/26/23 09:39 Interval history: fht 125, cat 1, regular ctx, pitocin started due to no cervical change. OB - PN: Obj Data Labs 05/26/23 04:25 Labs: Laboratory Results - last 24 hr 05/26/23 04:25 WBC 8.1 RBC 4.34 Hgb 13.1 Hct 41.4 MCV 95.4 MCH 30.2 MCHC 31.6 L RDW 14.7 H Plt Count 227 MPV 11.2 H Immature Gran % (Auto) 1.0 H Neut % (Auto) 66.2 Lymph % (Auto) 22.5 [place] % (Auto) 8.8 H Eos % (Auto) 1.1 Baso % (Auto) 0.4 Lymph # (Auto) 1.81 [place] # (Auto) 0.7 H Eos # (Auto) 0.1 Baso # (Auto) 0.0 Abs Immat Gran (auto) 0.08 H Absolute Neuts (auto) 5.3 Absolute Nucleated RBC 0.0 Nucleated RBC % 0.0 Blood Type O Positive Antibody Screen Negative OB - PN A/P Time Spent With Patient Time: Total time spent is greater than 50% in coordination of care (as documented) at patient's floor/unit and/or counseling patient:
[2023-05-26] MEDS: OXYTOCIN 30 UNITS/NS 500 ML 30 UNITS/500 ML BAG 125 UNITS IV CONT (14:48)
--- NOTE | 2023-05-26 15:09 | PM.OBPRVD ---
OB - Vaginal Delivery Note Procedure Delivery date: 05/26/23 Events: Other (Marginal cord insertion) Delivery monitor: External FHT Route of delivery: Episiotomy description: None Laceration Description: Perineal - 2nd Degree Delivery repair: vicryl (3.0 vicryl) Specimen: Yes (placenta and cord) Quantitative Blood Loss (ml): 200 Anesthesia type: Epidural Disposition: Floor Complications: No immediate complications Baby Date of : 05/26/23 Time of : 14:11 Weeks of gestation at delivery: 39 gender: Female presentation: vertex position: Right Occiput Anterior Placenta delivery description: Spontaneous Cord Vessel Description: 3 Vessels (marginal cord insertion), Clamped/Cut and Delayed Cord Clamping score one minute: 8 score five minutes: 9 Narrative: She was admitted for SROM. Labor augmented with Pitocin. Epidural placed on request. Delivery per above. She tolerated procedure well. AMG Delivery Billing Delivery Delivery: Delivery Charge (delivering for Dr. Feldman)
[2023-05-26] MEDS: ACETAMINOPHEN 325 MG TABLET 650 MG PO (16:40)
[2023-05-26] MEDS: BENZOCAINE 20% AER SPR (*SP) 56 GM CAN 1 SPRAY TOPICAL (16:42)
[2023-05-26] MEDS: WITCH HAZEL 40 PADS 1 PAD TOPICAL (16:42)
[2023-05-26] MEDS: IBUPROFEN 600 MG TABLET PO (19:36)
[2023-05-27] MEDS: ACETAMINOPHEN 325 MG TABLET 650 MG PO (01:46)
[2023-05-27 04:12] VITALS: BP 98/64; PULSE 83; RESP 16; TEMP 36.7; O2SAT 97
[2023-05-27 05:03] LABS: Hematocrit 37.4 % (37.0-47.0); Hemoglobin 11.8 g/dL (12.0-15.0)
--- NOTE | 2023-05-27 07:35 | PM.OBPNVD ---
OB - PN: Subj Subjective Date/time seen: 05/27/23 07:35 Narrative: PPD#1 Eveline reports doing well today. 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 Her pain is controlled with the PO pain meds. She is tolerating regular diet, voiding, passing gas, and ambulating without issues. She is breast feeding. OB - PN: Obj Data Labs 05/27/23 04:25 Labs: Laboratory Results - last 24 hr 05/26/23 05/27/23 04:25 04:25 Hgb 11.8 L Hct 37.4 Blood Type O Positive Antibody Screen Negative OB - PN A/P Assessment and Plan (1) Normal vaginal delivery of second : Code(s): O80 - Encounter for full-term uncomplicated delivery Status: Acute Plan day: 1 Plan: routine care and discharge home (tomorrow) Comments: - continue hydration/po pain meds - continue putting baby to breast Time Spent With Patient Time: Total time spent is greater than 50% in coordination of care (as documented) at patient's floor/unit and/or counseling patient: Review of Systems Constitutional: Constitutional: Denies chills, Denies fever(s) and Denies headache(s) Eyes: Eyes: Denies change in vision ENT: Denies dizziness and Denies headache(s) Cardiovascular: Cardiovascular: Denies chest pain, Denies palpitations and Denies dyspnea Respiratory: Respiratory: Denies cough and Denies dyspnea Gastrointestinal: Gastrointestinal: Denies nausea and Denies vomiting Neurologic: Denies dizziness and Denies headache(s) Endocrine: Endocrine: Denies palpitations Exam Const: General: cooperative, comfortable, no acute distress and obese Orientation/consciousness: patient oriented x3 Resp: Effort & Inspection: normal respiratory effort Auscultation: clear to auscultation bilaterally Cardio: Rate: regular rate GI: Inspection: non-distended GI Palp: No abdominal tenderness and Yes Soft to palpation Auscultation: normal bowel sounds : Other: fundus firm Skin: General skin exam: normal color Neuro: General: patient oriented x3 Extrem: General: normal to inspection Psych: Appearance: grossly normal Affect: normal affect Attitude: cooperative
[2023-05-27] MEDS: DOCUSATE SODIUM 100 MG CAPSULE PO (07:59)
[2023-05-27] MEDS: MULTIVIT/MIN/PREN/FOL AC/IRON TABLET 1 TAB PO (07:59)
[2023-05-27] MEDS: IBUPROFEN 600 MG TABLET PO (07:59)
[2023-05-27] MEDS: LANOLIN (LANSINOH) 7.5 GM CREAM 1 APPLIC TOPICAL (08:00)
--- NOTE | 2023-05-27 10:18 | WPDANLDPN2 ---
Anes-Prog Note L&D Date/Time: 05/27/23 10:18 Comfortable throughout: labor and delivery Neuraxial method: epidural Epidural/Spinal procedure site: clean & non-tender Neuro status: Neuro function grossly intact. Cardiovascular status: normal Respiratory status: normal Airway patency: baseline Mental status: baseline Post-Op hydration status: normal Vital Signs: Last Vital Signs Temp 36.7 C 05/27/23 04:12 Pulse 83 05/27/23 04:12 Resp 16 05/27/23 04:12 BP 98/64 L 05/27/23 04:12 Pulse Ox 97 05/27/23 04:12 O2 Del Method Room Air 05/26/23 20:32 Pain score (VAS): 2/10 I/O: Intake & Output 05/26/23 05/27/23 05/27/23 23:59 07:59 15:59 Output Total 50 Balance -50 Post-procedural complaints: none Patient feedback: Patient satisfied with anesthetic care.
--- NOTE | 2023-05-27 11:36 | PC.NURSE ---
[id number] Introductions were made, then consulted with patient to assess needs related to . Mother led the conversation with her?plans to feed?her infant, the?experience so far with this infant versus her first one. Encouraged understanding of the benefits of skin to skin (demonstrating unwrapping infant and placing upright on her chest), stimulating with massage touch, changing positions to encourage wakefulness, how to watch for early feeding cues, responsive feeding, feeding on demand (aiming for 8-12 times in 24 hours, about every 2-3 hours), milk production, building/maintaining a milk supply, duration of feeding, signs of adequate intake/output and how to record on the feeding sheet. Mother works well with her with encouragement and education. Reviewed information using the visual educational handouts. [id number] Mother requested a consult to assess latch. Mother has latched with stomach facing the ceiling and dimpling, mouth less than 90 degrees, non-nutritive sucking, and the cheek is not rounded. Mother denies pain and after discussing mother consents to infant being detached to assess the shape of her nipple. Nipple is misshaped and the tip is blistered. Reviewed positioning and ear, shoulder, hip alignment, supporting the breast to facilitate a deep latch, asymmetrical latch (off-center), leading with the chin with a big, open, wide gape and body close to mother. Infant latched optimally to the right, then left breast in cross cradle position with mother assisting latch with the sandwich hold. Education given to the mother of how to visualize the suckling (with good rocking jaw motion), swallows (dropping of the lower jaw) and how to listen for drinking at the breast (the ka sound) and infant is demonstrating good rocking motion with swallowing on both breast. Infant was able to maintain latch without pain to mother protecting the nipple with optimal positioning and latching. Father of baby is shown ways to support mothers good latch to prevent changing latch or mother slowing lowering infant leading to a shallow latch and dimpling. Reviewed comfort measures of healing with a warm, wet washcloth to rinse breast, then leave open to air-dry, good handwashing when or touching the breast/nipples to prevent infection. Mother voiced understanding of skin to skin, stimulating with massage touch, responsive feedings, hand expressed colostrum, talking to to encourage if it has been 2 -2.5 hours since the start of the last , to call if does not latch, difficultly waking infant to breastfeed, or if there is discomfort with . Resources used for education were facilitated with the visual educational handouts, tool, mom and baby guide. Inpatient/outpatient resources provided with feeding sheet, name written on the communication board, and the mom/baby guide. Parents voiced understanding of information, demonstrated learning and will call if there is a request for assistance. Reported to the Primary RN.
[2023-05-27 12:46] VITALS: BP 97/61; PULSE 87; RESP 16; TEMP 36.6; O2SAT 98
[2023-05-27 13:53] LABS: Rapid Plasma Reagin Non-Reactive (NonReactive)
[2023-05-27 19:40] VITALS: BP 110/64; PULSE 77; RESP 16; TEMP 36.7; O2SAT 98
--- NOTE | 2023-05-28 06:29 | P.DS_ITS ---
DS: Admitting Diagnosis Discharge Date 05/28/23 Admitting Diagnosis Active labor DS: Discharge Diagnosis Discharge Diagnosis (1) Normal vaginal delivery of second : Code(s): O80 - Encounter for full-term uncomplicated delivery Status: Acute OB - DS: Summary OB Procedures : Ultrasound OB Procedures Intrapartum: Spontaneous Vag Delivery OB Procedures: : None Peripartum Data Infant Delivery Method: Natural Vaginal Laceration Description: Perineal - 2nd Degree Episiotomy description: None complications: none [place] 1: Gender: Female Disposition of : home Status at Discharge Functional status at discharge: independent ambulation Overall status at discharge: patient is back to baseline Time Spent with Patient Time attestation: Total time spent providing and/or coordinating discharge services: Time spent: Less than 30 minutes Exam Const: General: cooperative, comfortable and no acute distress Orientation/consciousness: patient oriented x3 Resp: Effort & Inspection: normal respiratory effort Auscultation: clear to auscultation bilaterally Cardio: Rate: regular rate GI: Inspection: non-distended GI Palp: No abdominal tenderness and Yes Soft to palpation Auscultation: normal bowel sounds : Other: fundus firm Skin: General skin exam: normal color Neuro: General: patient oriented x3 Extrem: General: normal to inspection Psych: Appearance: grossly normal Affect: normal affect Attitude: cooperative DS: Data Data Completed and Pending Pending studies at discharge: Pending at discharge 05/26/23 15:42 Surgical [PTH] Routine Labs on day of discharge: Labs from last 24 hours 05/26/23 04:25 RPR Non-reactive Discharge Plan Discharge Attending physician on discharge: Madelyn Feldman Discharging Clinician: Madelyn Feldman Anticipated Discharge Date/Time: 05/28/23 11:00 Patient Disposition: Home, Self-Care Activity: may shower and pelvic rest Diet: regular Patient Instructions: Antibiotic Form Stand Alone Forms: General Discharge Information Follow-up/Referrals: Madelyn Feldman MD [Physician] - 4 Weeks Discharge Medications: New acetaminophen 325 mg Tablet 650 mg PO Q6H PRN (Reason: Mild Pain (1-3) Or Headache) Qty: 60 0RF docusate sodium 100 mg Capsule 100 mg PO BID PRN (Reason: Constipation) Qty: 60 0RF ibuprofen 600 mg Tablet 600 mg PO Q6H PRN (Reason: Cramping) Qty: 40 0RF Continued omeprazole 20 mg capsule,delayed release(DR/EC) 20 mg PO DAILY Qty: 90 1RF sertraline [Zoloft] 25 mg tablet 25 mg PO DAILY Qty: 30 1RF prenat.vits,david,sgg-srbw-ablin Tablet 1 tablet PO DAILY ergocalciferol (vitamin D2) [Vitamin D2] 1,250 mcg (50,000 unit) Capsule 1,250 mcg PO WEEKLY Rx Instructions: takes every saturday Discontinued aspirin 81 mg Tablet 81 mg PO DAILY Date of admission: 05/26/23 03:44 Primary Care Provider: PHYSICIAN,PMP CERTIFIED PROJECT MANAGER Admitting Provider: Madelyn Feldman Attending physician on admission: Madelyn Feldman Condition: Stable
[2023-05-28 08:10] VITALS: BP 101/61; PULSE 69; RESP 16; TEMP 36.6; O2SAT 99
[2023-05-28] MEDS: ACETAMINOPHEN 325 MG TABLET 650 MG PO (09:35)
[2023-05-28] MEDS: DOCUSATE SODIUM 100 MG CAPSULE PO (09:38)
[2023-05-28] MEDS: BENZOCAINE 20% AER SPR (*SP) 56 GM CAN 1 SPRAY TOPICAL (09:38)
[2023-05-28] MEDS: MULTIVIT/MIN/PREN/FOL AC/IRON TABLET 1 TAB PO (09:38)
[2023-05-28] MEDS: WITCH HAZEL 40 PADS 1 PAD TOPICAL (09:38)
--- NOTE | 2023-05-28 12:45 | PC.NURSE ---
[id number] Mother led the conversation with her experience so far, plan to feed her , and her ability to independently latch optimally without discomfort. Reminded mother to use good handwashing technique to prevent infection. Mother is feeding appropriately for growth of infant and understands stimulating to eat if needed. Mother was unsure about if her was getting enough, so she opened one of the bottles that staff had provided her for home use and fed her the bottle. Reviewed mother's feeding goals and mother states she wants to breastfeed. Educational handout and we reviewed paced bottle feeding, protecting the milk supply and the latch. Infant has had appropriate feedings in the last 24 hours meets the outcomes for weight, output, blood sugar and jaundice at this time with no medical indication for supplementation. Mother states she is confident to continue effectively her at home, when to call for assistance, denies any additional assistance or education at this time. Reinforced understanding of milk production, transition of milk, signs of adequate intake, transition of stool, prevention/relief of engorgement, plugged ducts, mastitis, responsive watching for feeding cues, the different methods of stimulating infant to breastfeed 1-3 hours after the start of the last feeding, community resources, and when to call a provider using the resource of the mom and baby guide. Mother voiced understanding of the education shared.
[2023-05-29 11:16] VITALS: BP 112/84; PULSE 81; RESP 18; TEMP 37.1; O2SAT 100
== END 2023-05-28 11:04 | disposition home or self-care (01) | DRG 807 ==
LOC: ANHLDR 04:04 → ANHOB2 17:17
PROVIDERS: Admitting Provider Obstetrics & Gynecology; Visit Provider Obstetrics & Gynecology
DX: O43.123 Velamentous insertion of umbilical cord, third trimester (principal); Z37.0 Single live birth; O99.824 Streptococcus B carrier state complicating childbirth; O70.1 Second degree perineal laceration during delivery; Z3A.39 39 weeks gestation of pregnancy
CPT/HCPCS: 36415; 85014; 85018; 85025; 86592; 86850; 86900; 86901; 88307; A9270; J0290; J2590; J2795; J7120

== ENCOUNTER 2024-08-23 18:03 | Emergency (ER) | payer OTHER, SELFPAY ==
[2024-08-23 18:03] VITALS: BP 126/76; PULSE 77; RESP 20; TEMP 36.8; O2SAT 97
--- OUTSIDE RECORDS SUMMARY | 2024-08-23 18:06 | XMS_ITS | Clinical Summary ---
Author Organization [facility] on Address [address] [place] [address] Phone Care Team Providers Care Plastic Extrusion Operator Name Role Phone Unavailable Primary Care Provider Unavailabl e Encounters Date Type Department Care Team Description 05/28/2024 External Device Data [facility] ABSTRACTION Provider, Abstract from Last 3 Months Social History Tobacco Use Types Packs/Day Years Used Date Smoking Tobacco: Never Assessed Comments Unknown Sex and Gender Information Value Date Recorded Sex Assigned at Not on file Legal Sex Female 4:07 PM CDT Gender Identity Not on file Sexual Orientation Not on file Plan of Treatment Health Maintenance Due Date Last Done Comments DTAP/TDAP/TD VACCINES (1 - Tdap) 2013 HEPATITIS B VACCINES (1 of 3 - 19+ 3-dose series) 2013 CERVICAL CANCER SCREENING 11/02/2015 HPV/Cotest (21-29) 11/02/2015 PAP SMEAR 11/02/2015 INFLUENZA VACCINE (#1) 2023 HPV VACCINES Aged Out No longer eligi ble based on patient's age to complete this topic PNEUMOCOCCAL VACCINE 0-49 YEARS Aged Out No longer eligible based on patient's age to complete this topic Insurance [employer] PPO
--- NOTE | 2024-08-23 18:14 | ED.EYEPROB ---
HPI - Eye Problem General Chief complaint: Eye Problems Stated complaint: left eye swollen Source: patient Mode of arrival: ambulatory Limitations: no limitations History of Present Illness HPI Narrative: 28 years female came to the ED complaining of blister like lesion at the lateral side of left upper eyelid started 5-7 days ago, got worse today including swelling of the left upper eyelid. Patient denies any fever, chills, nausea, vomiting, vision disorder, redness of the eye or discharge from the eye. Patient report that the lesion is HE. Patient denies any skin rash anywhere else Related Data Home Medications ?Medication ?Instructions ?Recorded ?Confirmed ?Last Taken ?Type ergocalciferol (vitamin D2) 1,250 1,250 mcg PO WEEKLY 02/29/20 03/25/24 04/29/23 12:00 History mcg (50,000 unit) capsule (Vitamin D2) Allergies Allergy/AdvReac Type Severity Reaction Status Date / Time No Known Allergies Allergy Verified 03/25/24 09:54 Review of Systems Review of Systems: All systems reviewed & are unremarkable except as noted in HPI and below PMFSH Past Medical History Medical History Post depression Obesity (BMI 30-39.9) (spontaneous vaginal delivery) 2020 Pain during labor Family History Family History Father Diabetes mellitus Social History Social History Smoking status: Never smoker Second hand tobacco smoke exposure: No Substance use: never Do You Feel Safe in your Home?: Yes Lack of Transportation: No Lack of Food: Never True Current Housing: I Have Housing Concerned About Future Housing: No Difficulty Paying Gas/Electric Bills: No Difficulty Paying for Meds: No Currently Unemployed: No Education: Trade/Vocational Certificate Difficulty w/ Childcare or Family Care: No Living arrangements: with family Occupation/Education: occupation Gender identity (if verbalized by the patient): Female Sexual Orientation (if Verbalized by the Patient): Straight or Heterosexual Spiritual care concerns: No Exam Narrative: General appearance: Well-developed, well-nourished Skin: Normal color Head: Normocephalic, nontraumatic Eyes: Clear conjunctiva, no discharge, pupil are round reactive to light, extraocular muscle intact without any pain, left upper eyelids showing blisters like lesion laterally, no discharge, swollen, slightly erythematous, knee ENT: Oropharynx normal, ears normal, nose normal Neck: Supple, nontender Chest and respiratory: Airway patent, no respiratory distress, no accessory muscle use Heart: Regular rate/rhythm Neurologic: Alert and oriented ?3, VIDEOTAPE EDITOR is normal as tested, no gross motor deficit Course Vital Signs Vital signs: Vital Signs Temperature 36.8 C 08/23/24 18:03 Pulse Rate 77 08/23/24 18:03 Respiratory Rate 20 08/23/24 18:03 Blood Pressure 126/76 08/23/24 18:03 Pulse Oximetry 97 08/23/24 18:03 Oxygen Delivery Room Air 08/23/24 18:03 Temperature 36.8 C 08/23/24 18:03 Pulse Rate 77 08/23/24 18:03 Respiratory Rate 20 08/23/24 18:03 Blood Pressure 126/76 08/23/24 18:03 Pulse Oximetry 97 08/23/24 18:03 Oxygen Delivery Room Air 08/23/24 18:03 MDM - Eye Problem MDM Narrative Medical decision making narrative: physical examination showing blisters a like lesion at the left upper eyelid laterally consistent with viral infection with possible secondary bacterial infection. Shingles is less likely, herpes simplex is a possibility My plan to discharge patient on Valtrex for viral infection and clindamycin for possible secondary bacterial infection. Patient was advised to follow-up with elementary substitute teacher /legal document assistant within 3-5 days. Differential Diagnosis Differential diagnosis: Likely other ( As above) Critical Care Time Critical Care Time Critical Care Time: No Discharge Plan Discharge Clinical Impression: Infection of skin due to virus Patient Disposition: Home Condition: Stable Instructions: Blister (ED) Additional Instructions: Return if symptoms are worsening , call your family physician, legal document assistant, elementary substitute teacher for appointment within 3 days, take Tylenol as as needed for aches and pain, continue home medications. Patient Language: Taiwanese Prescriptions: New valacyclovir [Valtrex] 1 gram tablet 1,000 mg PO Q8H Qty: 21 0RF clindamycin HCl [Cleocin HCl] 150 mg capsule 450 mg PO Q8H Qty: 63 0RF No Action Slynd 4 mg (28) tablet 1 tablet PO DAILY Qty: 84 3RF ergocalciferol (vitamin D2) [Vitamin D2] 1,250 mcg (50,000 unit) Capsule 1,250 mcg PO WEEKLY Rx Instructions: takes every saturday Follow-up/Referrals: Babar Sears MD [Primary Care Provider] -
[2024-08-23] MEDS: CLINDAMYCIN HCL 150 MG CAP 450 MG PO (18:33)
[2024-08-23] MEDS: valACYclovir HCL 500 MG TABLET 1000 MG PO (18:33)
== END 2024-08-23 18:38 | disposition home or self-care (01) ==
PROVIDERS: Emergency Provider Emergency Medicine; PCP Internal Medicine
DX: L08.9 Local infection of the skin and subcutaneous tissue, unspecified (principal); B97.89 Other viral agents as the cause of diseases classified elsewhere
CPT/HCPCS: 99283; A9270

== ENCOUNTER 2024-10-27 13:23 | Outpatient (CLI) | payer OTHER, SELFPAY ==
--- NOTE | 2024-10-27 15:00 | NEURO_ITS ---
Impression: # Complains of intermittent numbness of hands. Non-diabetic. ? # Right very mild sensory Carpal Tunnel Syndrome. # No ulnar neuropathy. ? # Normal needle/EMG exam. ? # Clinical correlation recommended. Nerve Conduction Studies Anti Sensory Summary Table ?Stim Site NR Peak (ms) P-T Amp (?V) Site1 Site2 Delta-P (ms) Dist (cm) Brandon (m/s) Left Median Anti Sensory (2-3nd Digit) Wrist ? 2.6 81.1 Wrist 2-3nd Digit 2.6 14.0 54 Wrist ? 2.6 80.3 Wrist 2-3nd Digit 2.6 14.0 54 Right Median Anti Sensory (2-3nd Digit) Wrist ? 3.7 59.9 Wrist 2-3nd Digit 3.7 14.0 38 Wrist ? 3.7 43.8 Wrist 2-3nd Digit 3.7 14.0 38 Left Radial Anti Sensory (Base 1st Digit) Wrist ? 1.9 21.9 Wrist Base 1st Digit 1.9 0.0 Right Radial Anti Sensory (Base 1st Digit) Wrist ? 1.8 33.5 Wrist Base 1st Digit 1.8 0.0 Left Ulnar Anti Sensory (5th Digit) Wrist ? 2.0 62.5 Wrist 5th Digit 2.0 14.0 70 Right Ulnar Anti Sensory (5th Digit) Wrist ? 2.0 61.9 Wrist 5th Digit 2.0 14.0 70 Motor Summary Table ?Stim Site NR Onset (ms) O-P Amp (mV) Site1 Site2 Delta-0 (ms) Dist (cm) Brandon (m/s) Left Median Motor (Abd Poll Brev) Wrist ? 3.0 2.8 Elbow Wrist 4.1 25.0 61 Elbow ? 7.1 2.6 Right Median Motor (Abd Poll Brev) Wrist ? 2.7 6.2 Elbow Wrist 4.3 25.0 58 Elbow ? 7.0 6.4 Left Ulnar Motor (Abd Dig Minimi) Wrist ? 2.0 5.6 A Elbow Wrist 4.1 24.0 59 A Elbow ? 6.1 5.5 B Elbow Wrist 3.0 18.0 60 B Elbow ? 5.0 5.6 Right Ulnar Motor (Abd Dig Minimi) Wrist ? 2.0 5.4 A Elbow Wrist 4.1 25.0 61 A Elbow ? 6.1 4.5 B Elbow Wrist 3.0 19.0 63 B Elbow ? 5.0 4.6 F Wave Studies ?NR F-Lat (ms) L-R F-Lat (ms) Left Median (Mrkrs) (Abd Poll Brev) ? 24.35 2.38 Right Median (Mrkrs) (Abd Poll Brev) ? 26.73 2.38 Left Ulnar (Mrkrs) (Abd Dig Min) ? 23.50 0.09 Right Ulnar (Mrkrs) (Abd Dig Min) ? 23.59 0.09 EMG ?Side Muscle Nerve Root Ins Act Fibs Amp Dur Recrt Comment Right 1stDorInt Ulnar C8-T1 Nml Nml Nml Nml Nml Right Ext Indicis Radial (Post Int) C7-8 Nml Nml Nml Nml Nml Right Ext Digitorum Radial (Post Int) C7-8 Nml Nml Nml Nml Nml Right BrachioRad Radial C5-6 Nml Nml Nml Nml Nml Right PronatorTeres Median C6-7 Nml Nml Nml Nml Nml Right Abd Poll Brev Median C8-T1 Nml Nml Nml Nml Nml Right ABD Dig Min Ulnar C8-T1 Nml Nml Nml Nml Nml Right FlexPolLong Median (Ant Int) C7-8 Nml Nml Nml Nml Nml Right Abd Poll Long Radial (Post Int) C7-8 Nml Nml Nml Nml Nml Left 1stDorInt Ulnar C8-T1 Nml Nml Nml Nml Nml Left Ext Indicis Radial (Post Int) C7-8 Nml Nml Nml Nml Nml Left Ext Digitorum Radial (Post Int) C7-8 Nml Nml Nml Nml Nml Left BrachioRad Radial C5-6 Nml Nml Nml Nml Nml Left PronatorTeres Median C6-7 Nml Nml Nml Nml Nml Left Abd Poll Brev Median C8-T1 Nml Nml Nml Nml Nml Left ABD Dig Min Ulnar C8-T1 Nml Nml Nml Nml Nml Left FlexPolLong Median (Ant Int) C7-8 Nml Nml Nml Nml Nml Left Abd Poll Long Radial (Post Int) C7-8 Nml Nml Nml Nml Nml
== END 2024-10-27 13:24 | disposition home or self-care (01) ==
LOC: ANHNEURO 13:26
PROVIDERS: PCP Nurse Practitioner Family; Visit Provider Nurse Practitioner Family
DX: G56.01 Carpal tunnel syndrome, right upper limb (principal)
CPT/HCPCS: 95886; 95911